=== PATIENT | female | born 2005 | race Caucasian/White ===

== ENCOUNTER 2023-05-15 19:37 | Emergency (ER) | payer MEDICAID, SELFPAY ==
[2023-05-15 19:43] VITALS: BP 108/69; PULSE 78; RESP 17; TEMP 36.8; O2SAT 99; BMI 21.3
--- NOTE | 2023-05-15 20:55 | USR_ITS ---
PROCEDURE INFORMATION: Exam: US , Limited Exam date and time: 05/15/2023 9:22 PM Age: 17 years old Clinical indication: Lmp or gestational age (in weeks): 15 weeks; Antepartum complications; Bleeding; ; Additional info: Vaginal bleeding LABS AND CLINICAL REPORTS: Last menstrual period start date: 01/29/2023 Gestational age (Established): 15 w 1 d Estimated due date (Established): 11/05/2023 TECHNIQUE: Imaging protocol: Real-time ultrasound of the maternal uterus with image documentation. Exam focused on the clinical indication. COMPARISON: No relevant prior studies available. FINDINGS: Gestation: Intrauterine gestation. heart rate: 157 bpm Placenta: Placenta is anterior/right without convincing evidence of retroplacental hemorrhage. BIOMETRY: Gestational age (AUA): 15 w 0 d [place]-Rump length (CRL): crown-rump length is 9.1 cm corresponding to a 15 week 0 day gestation. More detailed biometry was not obtained. US/US OB limited [id number] IMPRESSION: Living John fetus is in cephalic position. Placenta is anterior/right without convincing evidence of abruption or hemorrhage. Cervix was not imaged. Doppler was not utilized.
[2023-05-15 21:19] LABS: Basophils % 0.2 %; Eosinophils # 0.1 10^3/uL (0.0-0.8); Eosinophils % 0.5 %; Lymphocytes # 1.7 10^3/uL (1.5-6.5); Lymphocytes % 11.5 %; Mean Corpuscular HGB Conc 33.4 g/dL (30-55); Mean Corpuscular Hemoglobin 30.8 pg (27-33); Mean Corpuscular Volume 92.1 fl (85-98); Monocytes # 0.9 10^3/uL (0.2-0.9); Monocytes % 6.1 %; Neutrophils # 11.75 10^3/uL (1.8-8.0); Neutrophils % 81.4 %; Nucleated Red Blood Cells % 0 %; Platelet Count 243 10^3/cmm (157-399); Red Cell Distribution Width 12.5 % (12.1-15.1); White Blood Count 14.44 10^3/uL (4.5-13.0)
--- NOTE | 2023-05-15 22:09 | ED_ITS ---
HPI - General: Chief complaint: Vaginal Bleeding Stated complaint: 15 weeks , bleeding Time Seen by Provider: 05/15/23 22:01 History of Present Illness: 17-year-old female comes in today for complaints of blood when she wipes after peeing. Patient is also reports some increased pain with urination. Patient reports symptoms for last 2 days. Patient is 15 weeks . Patient has felt movement with the baby. Patient is noted no other bleeding. Associated symptoms: Reports dysuria Review of Systems General: Reports: 10 or more systems reviewed and unremarkable except in HPI and below : Reports: dysuria and hematuria Physical Exam Const: COMMON NORMALS: alert HENMT: COMMON NORMALS: normocephalic HEAD & SCALP: normocephalic Neck/C-Spine: COMMON NORMALS: full ROM Chest: COMMONS NORMALS: normal inspection of the chest Resp: COMMON NORMALS: normal respiratory effort and clear to auscultation bilaterally AUSCULTATION: clear to auscultation bilaterally Cardio: COMMON NORMALS: regular rate and regular rhythm RATE: regular rate RHYTHM: regular rhythm GI: COMMON NORMALS: Soft to palpation PALPATION: Yes Soft to palpation : COMMON NORMALS: Yes no CVA tenderness BLADDER/KIDNEY EXAM: Yes no CVA tenderness Back/Pelvis: COMMON NORMALS: no CVA tenderness Extremity: COMMON NORMALS: normal to inspection Neuro: SENSORIUM/ORIENTATION: Yes alert Skin: COMMON NORMALS: turgor normal GENERAL SKIN EXAM: turgor normal Course Vital Signs: Vital signs: Vital Signs Temperature 98.2 F 05/15/23 19:43 Pulse Rate 78 05/15/23 19:43 Respiratory Rate 17 05/15/23 19:43 Blood Pressure 108/69 05/15/23 19:43 Pulse Oximetry 99 05/15/23 19:43 Oxygen Delivery Me thod Room Air 05/15/23 19:43 MDM - OB/Uterine Contractions Medical Decision Making 17-year-old female comes in today for complaints of blood when she wipes after urinating. Patient has also had some increased discomfort with urination. Patient appears nontoxic. Patient appears in no acute distress. Abdomen soft. No CVA tenderness. Skin is warm and dry. Vital signs are normal. Differential diagnosis includes but not limited to threatened miscarriage, subchorionic hemorrhage, placenta previa, urinary tract infection. Ultrasound notes normal early with good heart tones at 150. CBC notes a white count of 14,000, and mild anemia with a hemoglobin of 11.7. Blood typing is A positive. Urinalysis had a large amount of white blood cells 55-80 HPF/H and positive leukocyte esterase. Results of urinalysis are strong suspicion for urinary tract infection along with presenting symptoms. Patient be treated with cephalexin 500 mg 3 times a day for 7 days. Patient was recommended to follow- up with primary care or [facility] [employer] MARKUP CLERK in 1 week for recheck. Return to ED for worsening symptoms. Patient reported understanding and agreed to plan. Lab Data 05/15/23 21:06 Radiology Impressions Obstetrics Ultrasound 05/15/23 20:55 IMPRESSION: Living John fetus is in cephalic position. Placenta is anterior/right without convincing evidence of abruption or hemorrhage. Cervix was not imaged. Doppler was not utilized. Laboratory Results WBC 14.44 10^3/uL (4.5-13.0) H 05/15/23 21:06 RBC 3.80 10^6/uL (3.85-5.65) L 05/15/23 21:06 Hgb 11.70 g/dL (12.4-14.8) L 05/15/23 21:06 Hct 35.0 % (36-47) L 05/15/23 21:06 MCV 92.1 fl (85-98) 05/15/23 21:06 MCH 30.8 pg (27-33) 05/15/23 21:06 MCHC 33.4 g/dL (30-55) 05/15/23 21:06 RDW 12.5 % (12.1-15.1) 05/15/23 21:06 Plt Count 243 10^3/cmm (157-399) 05/15/23 21:06 MPV 10.0 fL (7.4-10.4) 05/15/23 21:06 Neut % (Auto) 81.4 % 05/15/23 21:06 Lymph % (Auto) 11.5 % 05/15/23 21:06 [place] % (Auto) 6.1 % 05/15/23 21:06 Eos % (Auto) 0.5 % 05/15/23 21:06 Baso % (Auto) 0.2 % 05/15/23 21:06 Neut # (Auto) 11.75 10^3/uL (1.8-8.0) H 05/15/23 21:06 Lymph # (Auto) 1.7 10^3/uL (1.5-6.5) 05/15/23 21:06 [place] # (Auto) 0.9 10^3/uL (0.2-0.9) 05/15/23 21:06 Eos # (Auto) 0.1 10^3/uL (0.0-0.8) 05/15/23 21:06 Baso # (Auto) 0.0 10^3/uL (0.0-0.1) 05/15/23 21:06 Nucleated RBC % (auto) 0 % 05/15/23 21:06 Nucleated RBCs # 0.0 /100WBC 05/15/23 21:06 Urine Color Yellow (Yellow) 05/15/23 22:00 Urine Appearance Cloudy (CLEAR) A 05/15/23 22:00 Urine pH 5 (5-7) 05/15/23 22:00 Ur Specific [place] 1.020 (1.005-1.030) 05/15/23 22:00 Urine Protein 2+ (Negative) H 05/15/23 22:00 Urine Glucose (UA) Norm (Normal) 05/15/23 22:00 Urine Ketones 1+ (Negative) H 05/15/23 22:00 Urine Blood 3+ (Negative) H 05/15/23 22:00 Urine Nitrate Negative (Negative) 05/15/23 22:00 Urine Bilirubin Neg (Negative) 05/15/23 22:00 Urine Urobilinogen Neg mg/dL (Negative) 05/15/23 22:00 Ur Leukocyte Esterase 2+ (Negative) H 05/15/23 22:00 Urine RBC 25-40 /hpf (0-2) H 05/15/23 22:00 Urine WBC 55-80 /hpf (0-5) H 05/15/23 22:00 Ur Squamous Epith Cells 5-10 /hpf (0-5) H 05/15/23 22:00 Amorphous Sediment Not Reportable 05/15/23 22:00 Urine Bacteria 2+ /hpf (NONE) H 05/15/23 22:00 Blood Type A Positive 05/15/23 21:06 Rho(D) Type Positive 08/22/23 21:06 Antibody Screen Negative 05/15/23 21:06 Discharge Plan Discharge Patient Disposition: Home Clinical Impression: Urinary tract infection during Qualifiers: Trimester: unspecified trimester Qualified Code(s): O23.40 - Unspecified infection of urinary tract in , unspecified trimester Condition: Stable Prescriptions: New cephalexin 500 mg capsule 500 mg PO Q8H 7 Days Qty: 21 0RF Discharge Orders: Discharge ED (Routine); Ordered 05/15/23 Ordered By: Burton Gonzalez Referrals: Olinda Ray [Primary Care Provider] - Discharge Diet: Usual diet Discharge Activity: Increase activity as tolerated Patient Instructions: Urinary Tract Infection in (ED) Activity Restrictions/Additional Instructions: Take antibiotic as directed. 1 capsule cephalexin 500 mg 3 times a day for 7 days. Follow-up with primary care or [facility] [employer] [employer] MARKUP CLERK in 1 week for recheck of urine. Return to ER for worsening symptoms such as high fever, inability to hold fluids down, severe abdominal pain, or new concerns. Coding Level of Care Code ED [employer] for Morena Owens
[2023-05-15 22:16] LABS: Urine Appearance Cloudy (CLEAR); Urine Color Yellow (Yellow); pH Urine 5 (5-7)
[2023-05-15 22:17] LABS: Add Urine Microscopic? YES; Bilirubin Urine Neg (Negative); Blood Urine 3+ (Negative); Glucose Urine UA Norm (Normal); Ketones Urine 1+ (Negative); Leukocyte Esterase Urine 2+ (Negative); Nitrate Urine Negative (Negative); Protein Urine 2+ (Negative); Urobilinogen Urine Neg (Negative)
[2023-05-15 22:18] LABS: Add Urine Culture? Yes; Bacteria Urine 2+ /hpf; RBC Urine 25-40 /hpf (0-2); WBC Urine 55-80 /hpf (0-5)
[2023-05-15] MEDS: cephALEXin 500 mg Capsule PO (22:30)
[2023-05-15 22:48] VITALS: BP 108/69; PULSE 78; RESP 17; TEMP 36.8; O2SAT 99
--- NOTE | 2023-05-15 22:50 | PC.NURSE ---
Vitals at discharge time of 2250: 101/69 BP; 83 HR; 100% SpO2 on RA; 16 RR.
== END 2023-05-15 22:49 | disposition home or self-care (01) ==
PROVIDERS: Emergency Medicine; Emergency Provider Nurse Practitioner Family; PCP Nurse Practitioner Family
DX: O23.42 Unspecified infection of urinary tract in pregnancy, second trimester (principal); N39.0 Urinary tract infection, site not specified; Z3A.15 15 weeks gestation of pregnancy
CPT/HCPCS: 36415; 76815; 81001; 85025; 86850; 86900; 87077; 87086; 87186; 99284